=== PATIENT | female | born 1940 | race African-American/Black ===

== ENCOUNTER → 2016-05-31 | Day surgery (SDC) | payer OTHER ==
[~2016-05-31] MED LIST: CARBOCAINE PF 2% ONE; NS 250 ML ONE
--- NOTE | 2016-05-31 17:57 | Diag Imaging Result Document ---
PROCEDURE NAME: NEPHROSTOGRAM - 05/31/2016 RIGHT NEPHROSTOMY CATHETER PLACEMENT UNDER FLUOROSCOPY AND RIGHT NEPHROSTOGRAM: COMPARISON: 03/10/2016. FINDINGS: The patient's previous indwelling nephrostomy tube was dislodged this morning and it was not in place at the time of the procedure. Risks, benefits, and alternatives were discussed with the patient and informed consent was obtained. The patient was placed in a prone position and was prepped and draped in a sterile fashion. Local anesthesia was achieved with 1% lidocaine solution. Using fluoroscopy guidance, a Glidewire was inserted via the same tract as the recently dislodged nephrostomy tube and a pigtail catheter was placed over wire into the right renal collecting system. Injected contrast through the newly placed catheter showed expected filling of the right renal collecting system and proximal right ureter, which were dilated. The catheter was secured with suture and a dressing with a catheter lock. There was good urine return after placement. IMPRESSION: Successful placement of right nephrostomy tube under fluoroscopy as described.
== END | disposition home or self-care (01) ==
LOC: OPS 09:39
PROVIDERS: ATTEND Urology
DX: T83.022A Displacement of nephrostomy catheter, initial encounter (principal); C80.1 Malignant (primary) neoplasm, unspecified
CPT/HCPCS: 74425; J0670; J7050; Q9966

== ENCOUNTER 2018-10-20 12:13 | Inpatient (IN) ==
[2018-10-20 13:45] LABS: BASO# 0.01 X1000 (0.0-0.2); BASO% 0.1 % (0.0-0.8); EOS# 0.01 X1000 (0.0-0.7); EOS% 0.1 % (0.0-10.0); HEMATOCRIT 30.8 % (37.0-47.0); HEMOGLOBIN 9.8 g/dL (12.0-16.0); IMM GRAN# 0.02 X1000 (0.0-0.04); IMM GRAN% 0.2 % (0.0-0.5); LYMPH% 4.8 % (20.5-51.1); MCH 30.6 PG (27-31); MCHC 31.8 g/dL (33-37); MCV 96.3 FL (81-99); MONO# 0.62 X1000 (0.11-0.59); MONO% 7.5 % (1.7-9.3); MPV 12.2 FL (7.4-10.4); NEUT# 7.19 X1000 (1.4-6.5); NEUT% 87.3 % (42.2-75.2); PLT 139 X1000 (130-400); RDW 13.9 % (11.5-14.5); WBC 8.25 X1000 (4.8-10.8)
[2018-10-20 13:56] LABS: ALBUMIN 3.3 g/dL (3.5-5.0); CALCIUM 9.5 mg/dL (8.8-10.2); CREATININE 4.8 mg/dL (0.5-0.9); POTASSIUM 3.8 mmol/L (3.5-5.1); TOTAL BILIRUBIN 0.51 mg/dL (0.20-1.00); TOTAL PROTEIN 6.6 g/dL (6.3-8.3)
[2018-10-20] MEDS ORDERED: VANCOMYCIN 1 GM/NS 1 GM/250 ML IVPB IV SCH (15:15)
--- NOTE | 2018-10-20 16:14 | PROVIDER DOCUMENTATION ---
This chart was entered by Cielo Willoughby Scribe, acting as scribe for Haleigh Dailey MD. HPI-General Adult - General Chief Complaint: Abnormal Lab[s] Stated Complaint: LOWER ABD PAIN Time Seen by Provider: 10/20/18 12:41 Source: patient Allergies/Adverse Reactions: Patient Allergies Allergy/AdvReac Type Severity Reaction Status Date / Time promethazine HCl * AdvReac Intermediate DIZZINESS Verified 08/04/18 07:39 [From Phenergan] Home Medications: Home Medication List Medication Instructions Recorded Confirmed Last Taken Type Iron 18 mg PO DAILY 12/17/13 08/04/18 08/03/18 21:00 History Simvastatin [Zocor] 20 mg PO DAILY 12/17/13 08/04/18 08/03/18 21:00 History Sodium Bicarbonate 325 mg PO BID 12/17/13 08/04/18 08/03/18 21:00 History Amlodipine Besylate [Norvasc] 2.5 mg PO DAILY 03/10/16 08/04/18 08/03/18 21:00 History - History of Present Illness -Gen Adult Nature of Presenting Problems: 78 y/o female presents to ED with N/V and difficulty walking onset 2 days ago. Pt reports she dialyzed yesterday, had blood work done, and was called today and told to come to ED because her "blood test was positive." Pt states she has hx bladder cancer and has a urostomy. Pt reports she has dialysis /, but she missed it on Tuesday, so she dialyzed / this week. Pt is alert and oriented. Location of Pain/Injury: reports: none Pain Radiation: reports: no radiation Quality of Pain: reports: none Severity: reports: mild Onset/Duration: reports: 2 days ago Timing: reports: still present Context/Activities at Onset: reports: none Modifying Factors: improves with: nothing Associated Symptoms: reports: nausea, vomiting, trouble walking Similar Symptoms Previously?: No Recently seen or treated by another doctor?: Yes Review of Systems - Adult - REVIEW OF SYSTEMS - ADULT Constitutional: reports: other (difficulty walking). denies: chills, fever Eyes: reports: no symptoms reported Ears, Nose, Mouth & Throat: reports: no symptoms reported Cardiovascular: denies: chest pain, palpitations Respiratory: denies: cough, shortness of breath Gastrointestinal: reports: nausea, vomiting. denies: abdominal pain, diarrhea Genitourinary: reports: no symptoms reported Musculoskeletal: denies: back pain, joint pain Integumentary: reports: no symptoms reported Neurological: denies: dizziness/vertigo, seizure Psychiatric: reports: no symptoms reported Endocrine: reports: no symptoms reported Hematologic/Lymphatic: reports: no symptoms reported Allergic/Immunologic: reports: no symptoms reported All Other Systems: Reviewed and Negative Past History - Adult - PAST MEDICAL HISTORY-ADULT Review of Records: reports: Old Records Reviewed, Nursing Assessment Review, Medications Reviewed Major Childhood Illnesses: reports: denies history Cardiovascular: reports: HTN Respiratory: reports: denies history Gastrointestinal: reports: denies history Obstetrical/Gynecological: reports: denies history Genitourinary: reports: cancer (bladder), dialysis (T/), ESRD, kidney disease, other (nephrostomy tube right kidney) Musculoskeletal: reports: denies history Neurological: reports: denies history Endocrine/Immune: reports: Diabetes Other Conditions: reports: denies history - PRIOR SURGERIES/PROCEDURES Surgical/Procedure History: reports: hysterectomy, , indwelling device (av shunt), other (bladder) - PRIOR HOSPITALIZATIONS Prior Hospitalizations: reports: for other non-related - IMMUNIZATION STATUS Childhood Immunizations: See Nurse Assessment Flu Vaccine: See Nurse Assessment - FAMILY HISTORY Family History: reviewed, not pertinent - SOCIAL HISTORY Smoking: non-smoker Substance Use: none/never Alcohol Use Frequency: never Living Situation: family Physical Exam-General - PHYSICAL EXAM-ADULT Initial Vital Signs Reviewed: Yes - CONSTITUTIONAL General Appearance: appears well, alert, no apparent distress - EYES Eyes: PERRL/EOMI, pink conjunctivae - HEAD, EARS, NOSE, MOUTH & THROAT HENMT: normocephalic/atraumatic, moist mucous membranes, normal ENT inspection - NECK Neck: non-tender, full range of motion, other (increased venous pressure in the neck) - RESPIRATORY Respiratory: chest non-tender, lungs clear, normal breath sounds - CARDIOVASCULAR Cardiovascular: normal peripheral pulses, regular rate, rhythm - GASTROINTESTINAL (ABDOMEN) Abdominal Exam: normal bowel sounds, non tender, soft, other (urostomy in place in right lower abdomen) - MUSCULOSKELETAL Back Exam: normal inspection, no CVA tenderness, no vertebral tenderness, other (nephrostomy in place on the right) Extremity: normal range of motion, non-tender, normal gait, swelling (1 + pitting edema of bilateral lower extremities) - SKIN Integumentary: normal color, warm/dry, swelling (1 + pitting edema of bilateral lower extremities) - NEUROLOGIC Neurologic: grossly normal - PSYCHIATRIC Psych/Mental Status: normal mood/affect, normal thought content, normal thought process, oriented x 3 Progress - PLAN OF CARE/RESULTS Progress/Plan/Lab Results: Vital Signs - 8 hr 10/20/18 12:17 Temperature 98.2 F Pulse Rate 76 Respiratory Rate 18 Blood Pressure 104/53 O2 Sat by Pulse Oximetry 98 Orders Category Date Time Status Saline Loc NOW Care 10/20/18 12:50 Active CBC WITH DIFF [HEME] Stat Lab 10/20/18 12:50 Uncollected COMPREHENSIVE METABOLIC PANEL [CHEM] Stat Lab 10/20/18 12:50 Uncollected Laboratory Tests 10/20/18 10/20/18 13:30 13:30 WBC 8.25 RBC 3.20 L Hgb 9.8 L Hct 30.8 L MCV 96.3 MCH 30.6 MCHC 31.8 L RDW Std Deviation 13.9 Plt Count 139 MPV 12.2 H Immature Gran % (Auto) 0.2 Neut % (Auto) 87.3 H Lymph % (Auto) 4.8 L [place] % (Auto) 7.5 Eos % (Auto) 0.1 Baso % (Auto) 0.1 Immature Gran # (Auto) 0.02 Neut # (Auto) 7.19 H Lymph # (Auto) 0.40 L [place] # (Auto) 0.62 H Eos # (Auto) 0.01 Baso # (Auto) 0.01 Sodium 136 Potassium 3.8 Chloride 95 L Carbon Dioxide 25 Anion Gap 16 BUN 30 H Creatinine 4.8 H Estimated GFR/1.73 m2 11 BUN/Creatinine Ratio 6 Glucose 65 L Calculated Osmolality 276 Calcium 9.5 Total Bilirubin 0.51 AST 16 ALT 13 Alkaline Phosphatase 84 Total Protein 6.6 Albumin 3.3 L Globulin 3.3 Albumin/Globulin Ratio 1.0 Result Diagrams: 10/20/18 13:30 10/20/18 13:30 - CT/MRI 1 CT Study: Abdomen, Pelvis Impression: See EMR Report ([facility] - [address] , [address], [place] [id number] [address] Department of Imaging Patient: ALYSSA KILLIAN Date: 10/20/18#: [id number] : 1940DM Status: REG ERAcct#: [id number] Age/Sex: 78/FRoom/Bed: Loc: ED Ordering Physician: Haleigh Dailey MD Family Physician: Guy Erazo MD Reason for Procedure: abdominal pain Signed EXAM: CT ABDOMEN/PELVIS W/O CONTRAST HISTORY: abdominal pain TECHNIQUE: CT abdomen and pelvis without contrast COMPARISON: None. FINDINGS: There are scattered hepatic and splenic granuloma. No focal hepatic or splenic abnormality identified on this noncontrasted exam. There is a small hiatal hernia. Normal pancreas. The left kidney has been removed. There is a percutaneous the prostate catheter within the right kidney. The gallbladder is contracted. Apparent stones within it. Severe atherosclerosis. There is a fat filled periumbilical hernia. Small anterior fat filled hernia at the level of the left lobe of the liver. There is also right lower quadrant colostomy and hernia containing bowel loops. No obstruction. There are colonic diverticula. No pelvic mass. IMPRESSION: 1.Right percutaneous nephrostomy 2.Right lower quadrant ostomy with hernia containing bowel, but no obstruction 3.Contracted gallbladder with cholelithia sis 4.Fat filled abdominal hernias 5.Left nephrectomy 6.Severe atherosclerosis 7.Colonic diverticulosis 8.Apparent cystectomy This exam was performed using automated exposure control, adjustment of mA or kV according to patient size, and/or use of iterative reconstruction technique. Electronically signed by Erick Santoyo 10/20/2018 4:41 PM 10/20/18 1641 Interpreting Physician: Erick Santoyo MD Dictated Date/Time: 10/20/18 4304 cc: Haleigh Dailey MD; Guy Erazo MD) - CONSULTS/PCP/HOSPITALIST Notification #1 *Consult/PCP/Hospitalist*: DENTON from Dr. Dietrich office Time Discussed: 15:03 Reason/Comments: Positive blood culture Consult Disposition: Admit #2 Consult: DENTON King for hospitalist Time Discussed: 15:53 Reason/Comments: Bacteremia Consult Disposition: Admit Departure - Departure Date of Disposition Decision: 10/20/18 Time of Disposition Decision: 15:03 DIAGNOSIS: Bacteremia Disposition: ADMITTED INPATIENT 09 Certified Medical Emergency: Emergent Condition: Stable - Critical Care Note This patient required my direct & personal management of CC.: No Attestation - Physician/ DAYLIN Attestation Patient care was provided by Advanced Practice Provider:: No The physician spent face to face time with patient:: Yes Advanced Practice Provider documentation review:: Supervising physician onsite and consulted in the evaluation and care of this patient. The physician did have a face to face encounter with the patient. This chart was documented by the indicated scribe, (Cielo Willoughby Scribe) and accurately reflects the services I performed and decisions made by me, Haleigh Dailey MD, as attested by the provider's signature.
--- NOTE | 2018-10-20 16:43 | Diag Imaging Result Doc PS360 ---
EXAM: CT ABDOMEN/PELVIS W/O CONTRAST HISTORY: abdominal pain TECHNIQUE: CT abdomen and pelvis without contrast COMPARISON: None. FINDINGS: There are scattered hepatic and splenic granuloma. No focal hepatic or splenic abnormality identified on this noncontrasted exam. There is a small hiatal hernia. Normal pancreas. The left kidney has been removed. There is a percutaneous the prostate catheter within the right kidney. The gallbladder is contracted. Apparent stones within it. Severe atherosclerosis. There is a fat filled periumbilical hernia. Small anterior fat filled hernia at the level of the left lobe of the liver. There is also right lower quadrant colostomy and hernia containing bowel loops. No obstruction. There are colonic diverticula. No pelvic mass. IMPRESSION: 1.Right percutaneous nephrostomy 2.Right lower quadrant ostomy with hernia containing bowel, but no obstruction 3.Contracted gallbladder with cholelithiasis 4.Fat filled abdominal hernias 5.Left nephrectomy 6.Severe atherosclerosis 7.Colonic diverticulosis 8.Apparent cystectomy This exam was performed using automated exposure control, adjustment of mA or kV according to patient size, and/or use of iterative reconstruction technique. Electronically signed by Erick Santoyo 10/20/2018 4:41 PM
[2018-10-20 17:20] LABS: URINE SOURCE CATH
[2018-10-20 17:37] LABS: CLARITY TURBID (CLEAR); COLOR BROWN
[2018-10-20 17:38] LABS: BILIRUBIN URINE NEGATIVE (NEGATIVE); GLUCOSE URINE NEGATIVE (NEGATIVE); KETONE URINE 40 mg/dL (NEGATIVE)
[2018-10-20 17:39] LABS: BLOOD URINE LARGE (NEGATIVE); PROTEIN URINE NEGATIVE (NEGATIVE); UROBILINOGEN URINE 0.2 EU/dL (0.2-1.0)
[2018-10-20 17:40] LABS: LEUKOCYTES URINE LARGE (NEGATIVE); NITRITE URINE NEGATIVE (NEGATIVE)
[2018-10-20 17:41] LABS: URINE BACTERIA 4+ /HFP; URINE CAST WHITE CELL PRESENT /LPF; URINE CRYSTAL NONE SEEN /HPF; URINE EPITHELIAL CELLS <10 /HPF (<10); URINE RBC TNTC /HPF (<10); URINE YEAST NONE SEEN /HPF
[2018-10-20 17:42] LABS: URINE WBC TNTC /HPF (<10)
[2018-10-20] MEDS ORDERED: TAZIDIME 0.5 GM in NS 50 ML IV ONE (18:16)
[2018-10-20] MEDS ORDERED: TAZIDIME 1 GM in NS 50 ML IV ONE (18:38)
[2018-10-20] MEDS ORDERED: TAZIDIME 1 GM in NS 50 ML IV SCH (21:00)
--- NOTE | 2018-10-20 22:50 | HISTORY AND PHYSICAL ---
ADDENDUM: The patient is a bladder cancer patient, dialysis patient. She was admitted directly after blood cultures were found to be positive yesterday attained during dialysis. She has bladder cancer and a nonfunctional urostomy but she has a nephrostomy on the right side that provides urine output currently. Her blood cultures from yesterday were positive for gram- negative rods and most likely related to urinary tract infection I am suspicious. Her last nephrostomy tube exchange was in July so she is due for nephrostomy tube change soon but in any case, the patient on exam she is doing well. Her nephrostomy tube was not draining. It is now draining purulent material and now sanguinous material so the patient will be admitted for treatment. Nephrology is already aware. Dr. Yepez has been consulted. I am going to consult Dr. Mello as well because of the nephrostomy issues and we will continue to follow. cc: MD Dr. Kacey Rios
--- NOTE | 2018-10-20 22:50 | HISTORY AND PHYSICAL ---
CHIEF COMPLAINT: Abnormal labs. 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 She has a chronic right nephrostomy tube. She presents to the emergency room under the direction of Dr. Dietrich after having positive blood cultures x2 that are growing gram-negative rods. They were drawn on 10/19/2018 at dialysis. The patient is a hemodialysis patient having Tuesday, , Tuesday hemodialysis. Ms. Bray states that she started having some nausea, vomiting, and difficulty walking that started during the night Tuesday night into Tuesday. She reported this during dialysis prompting blood cultures being drawn. PAST MEDICAL HISTORY: 1. End-stage renal disease on Tuesday, , Tuesday hemodialysis. 2. 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 3. History of a nonfunctioning left kidney. 4. Reflux into the right ureter per loopogram. 5. Chronic anemia secondary to end-stage renal disease. 6. Folic acid and B12 deficiency. 7. Diabetes mellitus. 8. Gastroesophageal reflux disease. PAST SURGICAL HISTORY: Cholecystectomy, hysterectomy, bilateral oophorectomy, ileal conduit. SOCIAL HISTORY: Denies alcohol, tobacco, or illicit drug use. ALLERGIES: Phenergan which causes dizziness. HOME MEDICATIONS: A list will be obtained by the nursing staff and once verified we will review and restart as appropriate. REVIEW OF SYSTEMS: Discussed with patient with pertinent positives stated in the HPI. All other systems are negative. PHYSICAL EXAMINATION: GENERAL: This is an 78-year-old female who is lying on the stretcher in the emergency room in no distress. VITAL SIGNS: Blood pressure as 119/55 with a heart rate of 81, respirations are 16, temperature is 97.8 degrees oral with room air saturations 99 to 100. HEENT: Head is normocephalic, atraumatic. Mucous membranes are moist. NECK: Supple. Trachea midline. CARDIOVASCULAR: Regular rate and rhythm. S1 and S2 appreciated. Calves are nontender bilateral. She does have bilateral pitting edema with peripheral pulses palpable. PULMONARY: Breath sounds are clear with no increased work of breathing noted. Chest rises and falls symmetric with respiration. GASTROINTESTINAL: Abdomen is soft, nontender, nondistended with bowel sounds in all 4 quadrants. GENITOURINARY: Urostomy is intact. Right lower abdomen stoma is pink. NEUROLOGIC: She is alert and oriented x3. SKIN: Warm and dry. LABORATORY DATA: WBC is 8.2 with hemoglobin 9.8, hematocrit 30.8, platelets of 139,000. Sodium 136, potassium 3.8, BUN 30, creatinine 4.8 with a glucose of 65. Urinalysis of cath urine reveals large amount of blood with too numerous to count red blood and white blood cells, 4+ bacteria. MICROBIOLOGY: 1. Blood cultures from 10/19/2018 preliminary is gram-negative rods. 2. Blood cultures x2 today are pending. 3. Urine culture is pending. 4. CT of the abdomen and pelvis revealed right percutaneous nephrostomy, right lower quadrant ostomy with hernia containing bowel but no obstruction. Contracted gallbladder with cholelithiasis. Fat-filled abdominal hernias. Left nephrectomy, severe arthrosclerosis, colonic diverticulosis and apparent cystectomy. ASSESSMENT AND PLAN: 1. Bacteremia. Blood cultures were redrawn in the emergency room. She was given vancomycin and Fortaz as per Dr. Dietrich's instructions and further antibiotics will be culture driven and dosed per Dr. Dietrich. 2. Nausea and vomiting. We will give Zofran for nausea. She did state that over the last 24 hours she has had no vomiting and much less nausea. She has had a little appetite. We will continue with a renal diet. 3. Folic acid and B12 deficiency, aware. 4. Hypertension. 5. Diabetes mellitus. She will be placed on pattern blood glucose and sliding scale insulin. 6. Gastroesophageal reflux disease. We will continue her Nexium. 7. Plan discussed with Dr. Mayer. 8. Further treatments pending hospital course. Dictated by DENTON Barclay for Boris Mayer MD cc: DENTON Barclay MD [facility]
[2018-10-21] MEDS: PRILOSEC PO SCH (06:41)
[2018-10-21 06:55] LABS: BASO# 0.01 X1000 (0.0-0.2); BASO% 0.2 % (0.0-0.8); EOS# 0.08 X1000 (0.0-0.7); EOS% 1.2 % (0.0-10.0); HEMATOCRIT 28.3 % (37.0-47.0); HEMOGLOBIN 9.1 g/dL (12.0-16.0); IMM GRAN# 0.03 X1000 (0.0-0.04); IMM GRAN% 0.5 % (0.0-0.5); LYMPH# 0.51 X1000 (1.2-3.4); LYMPH% 7.7 % (20.5-51.1); MCH 30.7 PG (27-31); MCHC 32.2 g/dL (33-37); MCV 95.6 FL (81-99); MONO# 0.48 X1000 (0.11-0.59); MONO% 7.3 % (1.7-9.3); MPV 11.8 FL (7.4-10.4); NEUT# 5.48 X1000 (1.4-6.5); NEUT% 83.1 % (42.2-75.2); PLT 156 X1000 (130-400); RBC 2.96 XMIL (4.2-5.4); RDW 13.8 % (11.5-14.5); WBC 6.59 X1000 (4.8-10.8)
[2018-10-21 07:14] LABS: ALBUMIN 2.7 g/dL (3.5-5.0); PHOSPHORUS 4.6 mg/dL (2.7-4.5); POTASSIUM 3.4 mmol/L (3.5-5.1)
[2018-10-21 07:16] LABS: CREATININE 6.1 mg/dL (0.5-0.9)
[2018-10-21] MEDS ORDERED: NS 2,000 ML MISC PRN (08:41)
[2018-10-21] MEDS ORDERED: HEPARIN IV PRN (08:41)
--- NOTE | 2018-10-21 14:32 | PROGRESS NOTE ---
DATE: 10/21/2018 SUBJECTIVE: Patient has no major complaints. She is getting dialysis. Seems to be doing okay. No major issues overnight. OBJECTIVE: Vital signs: Blood pressure is 120/50, heart rate of 63, respiratory 15, temperature 98.5 degrees, 100% on room air. Cardiovascular: Regular rate and rhythm. Pulmonary: Bilateral breath sounds clear to auscultation. Gastrointestinal: Soft, nontender, nondistended. Bowel sounds were positive. LABORATORY DATA: White count is 6, hemoglobin and hematocrit 9 and 28, platelets 156,000. BUN and creatinine are 41 and 6.1. Micro shows negative blood cultures from the 2nd but positive blood cultures from the 1st, and these were positive for Klebsiella oxytoca, which is sensitive to cefazolin. The patient currently on vancomycin and ceftazidime. PROBLEM LIST: 1. Klebsiella bacteremia, likely related to urinary tract infection and sepsis related to that. I think we can stop the vancomycin because this is a gram-negative jose and likely a urinary source. She is on ceftazidime, which should be sufficient coverage but cefazolin may be sufficient coverage too. Dr. Yepez will evaluate tomorrow, so we will continue to follow. 2. Nausea and vomiting. We will give Zofran for nausea and follow. That is resolved. 3. Type 2 diabetes is stable. 4. Nephrostomy. Today, her urine output is good. There are no issues with that. Urology has been consulted because she had a malfunctioning nephrostomy and may be due for these to be changed, so we will continue to follow. cc: Boris Mayer MD
[2018-10-21] MEDS ORDERED: TAZIDIME 0.5 GM in NS 50 ML IV ONE (17:00)
[2018-10-21] MEDS ORDERED: VANCOMYCIN 500 MG/NS 500 MG/100 ML IVPB IV ONE (18:00)
[2018-10-21] MEDS ORDERED: VANCOMYCIN 500 MG/NS 500 MG/100 ML IVPB IV SCH (18:13)
[2018-10-21] MEDS ORDERED: TAZIDIME 0.5 GM in NS 50 ML IV SCH ×4 (18:16)
--- NOTE | 2018-10-21 18:23 | CONSULTATION ---
DATE OF CONSULTATION: 10/21/2018 CONSULTING SERVICE: Hospitalist. CONSULTATION FOR: "Malfunction in nephrostomy". 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 She underwent left nephroureterectomy with cystectomy with pelvic exoneration ileal conduit in 2007. She has had right nephrostomy tube for a number of years. They are typically changed approximately every 4 months. Her last exchange took place on 08/04/2018. The patient was admitted because of positive blood cultures, nausea and vomiting and weakness. She reports cloudy urine in her nephrostomy tube with thick material. She reports that the tube is draining well and she fill up an entire nephrostomy bag over 24 hour period. She denies pulling on the tube or tube being inadvertently repositioned. She currently reports feeling fairly well. PAST MEDICAL HISTORY: End-stage renal disease, urothelial carcinoma of the bladder, anemia, diabetes mellitus, GERD. PAST SURGICAL HISTORY: Cholecystectomy, left nephrectomy with cystectomy with pelvic exoneration and ileal conduit urinary diversion, multiple nephrostomy tube exchanges. ALLERGIES: Phenergan. HOME MEDICATIONS: Iron, simvastatin, sodium bicarbonate, Norvasc. SOCIAL HISTORY: She denies tobacco, alcohol or drug use. FAMILY HISTORY: Negative for malignancy. REVIEW OF SYSTEMS: Reviewed and 12 systems negative except for the HPI. PHYSICAL EXAMINATION: 98.5, P 63, BP 120/50.General: A pleasant female in no acute distress. HEENT: Normocephalic, atraumatic. Cardiovascular: Regular rhythm. Pulmonary: Bilateral breath sounds. Abdomen: Large ventral scar which is healed well. Abdomen: Nontender, nondistended. No peritoneal signs. No guarding. Ileal conduit in the right lower quadrant. Palpation with the finger at the level of the stoma does not show any evidence of stenosis. Back: No CVA tenderness, right nephrostomy tube is in place draining straw-colored urine at the time of examination. : Bladder is nontender to palpation. Dermatologic: No obvious skin rashes. Neurologic: Alert, orient, x3 . Psychiatric: Appropriate mood and affect. PERTINENT LABORATORY DATA: White cell count 7000, hematocrit 28, creatinine is 6.1, potassium is 3.4. Her urinalysis July 2018 showed 4+ bacteria, too numerous to count white cells, too numerous to count red cells. Her blood culture from 10/19/2018 is growing Klebsiella oxytoca, her urine culture from 10/20/2018 and blood cultures still pending. IMAGING: CT abdomen and pelvis without contrast on 10/20/2018 revealing right nephrostomy tube in decent place, there is right hydroureteronephrosis despite the tube presence with tapering of the ureter by my personal review. ASSESSMENT/PLAN: 78-year-old female with right solitary kidney and ileal conduit with her right kidney managed with nephrostomy tube. She is not due for exchange until sometime in November however she has had positive blood cultures. I have discussed with the patient that I do not see any evidence of malfunction in tube. We have discussed that given her positive blood cultures it is reasonable to exchange nephrostomy tube. Urology does not exchange nephrostomy tube. Per hospital system radiologists do that and ask us to put the orders on their behalf. Over the weekend there is no radiologist available to exchange nephrostomy tube. Because she is not clinically unstable this can wait until Tuesday when we will ask the radiology colleagues to exchange the tube. PLAN: 1. The nephrostomy tube currently is draining well and with adequate volume. It is in adequate position hence nothing needs to be done over the weekend. 2. On Tuesday we will ask the radiology physicians to exchange nephrostomy tube. cc: Stephen Martinez MD
--- NOTE | 2018-10-21 20:24 | NEPHROLOGY CONSULTATION ---
DATE: 10/21/2018 REASON FOR ADMISSION: Positive blood cultures, fever, nausea, vomiting. REASON FOR CONSULTATION: Assist with management, ESRD management. HISTORY OF PRESENT ILLNESS: This is an 78-year-old female with history of end- stage renal disease, on dialysis on Tuesday, , Tuesday. She dialyzed on Tuesday and this week. She was noted to have nausea, vomiting, and a fever. Blood cultures were drawn. On Tuesday, we had results back from her blood cultures. She was positive with gram-negative rods. She was directed to the emergency room, so that she could be admitted, have antibiotic treatment, and workup for her positive blood cultures. She did present to the ER. We initiated vancomycin and Fortaz. We ordered an Infectious Disease consult. The patient did have CT imaging as well as other imaging and workup, and repeat blood cultures. It is noted that the patient has a history of fairly recent bladder cancer with bladder removal and now has a urostomy tube to drainage. She was also noted to have too numerous to count bacteria with her urine specimen. When I see her today, she is undergoing hemodialysis. She has continued to have some nausea, but no vomiting, and she has been afebrile overnight since receiving antibiotics. 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 SURGICAL HISTORY: Cholecystectomy, hysterectomy, bilateral oophorectomy, and the ileal conduit. ALLERGIES: Promethazine. HOME MEDICATIONS: Please see chart. SOCIAL HISTORY: Negative. FAMILY HISTORY: Noncontributory. REVIEW OF SYSTEMS: Fever, nausea, vomiting. PHYSICAL EXAMINATION: Vital Signs: Temperature 98.5 degrees, pulse 65, respiratory rate 15, blood pressure 120/50. Intake 50 mL, output 750 mL. General: This is an elderly female, sitting up in bed. She is currently undergoing hemodialysis. She is awake and alert. She is in no acute distress. HEENT: Normocephalic, atraumatic. MARGY. Neck: Supple without JVD. Cardiovascular: Regular. Pulmonary: Clear bilaterally. Abdomen: Soft with positive bowel sounds. She has an ileal conduit noted. Extremities: No clubbing, cyanosis, edema. She has an AV fistula of left upper extremity, currently cannulated. Integumentary: Skin is warm and dry. Neurologic: Grossly nonfocal. LABORATORY DATA: WBC of 6.5, hemoglobin 9.1. Sodium 132, potassium 3.4, CO2 of 22, creatinine 6.1, albumin 2.7. Her urine was positive for bacteria. Her cultures are pending. IMAGING: As noted. ASSESSMENT AND PLAN: 1. Bacteremia. We will continue with the vancomycin and Fortaz. We requested assistance from Infectious Disease. It also appears that she has a Urology consult. We do not believe that her bacteremia is related to her dialysis access as she does not have any plastics in her access. 2. Electrolytes, acid-base balance. These are acceptable. 3. End-stage renal disease management. We will continue Tuesday, , Tuesday schedule. Dictated by DENTON Beth for Bebeto Dietrich MD cc: Bebeto Dietrich MD [facility]
[2018-10-22] MEDS: PRILOSEC PO SCH (06:35)
[2018-10-22 06:37] LABS: BASO# 0.03 X1000 (0.0-0.2); BASO% 0.4 % (0.0-0.8); EOS# 0.14 X1000 (0.0-0.7); HEMOGLOBIN 9.2 g/dL (12.0-16.0); IMM GRAN# 0.04 X1000 (0.0-0.04); IMM GRAN% 0.6 % (0.0-0.5); LYMPH# 0.72 X1000 (1.2-3.4); LYMPH% 10.1 % (20.5-51.1); MCH 30.9 PG (27-31); MCHC 31.7 g/dL (33-37); MCV 97.3 FL (81-99); MONO# 0.75 X1000 (0.11-0.59); MONO% 10.5 % (1.7-9.3); MPV 11.6 FL (7.4-10.4); NEUT# 5.45 X1000 (1.4-6.5); NEUT% 76.4 % (42.2-75.2); PLT 194 X1000 (130-400); RBC 2.98 XMIL (4.2-5.4); WBC 7.13 X1000 (4.8-10.8)
[2018-10-22] MEDS: ZOFRAN IV PRN (06:38)
[2018-10-22 07:02] LABS: ALBUMIN 2.9 g/dL (3.5-5.0); CALCIUM 9.1 mg/dL (8.8-10.2); CREATININE 4.4 mg/dL (0.5-0.9); POTASSIUM 3.1 mmol/L (3.5-5.1)
[2018-10-22] MEDS ORDERED: TAZIDIME 1 GM in NS 50 ML IV SCH ×2 (10:11→11:00)
[2018-10-22] MEDS ORDERED: TAZIDIME 0.5 GM in NS 50 ML IV ONE ×5 (10:12→11:00)
--- NOTE | 2018-10-22 11:46 | INFECTIOUS DISEASE CONSULT REP ---
DATE: 10/22/2018 CONCLUSION: The patient has a Klebsiella bacteremia. I think this most likely originated from her kidney. RECOMMENDATIONS: I agree with giving the patient ceftazidime after each dialysis. I have increased the dose from 0.5 g to 1 g after each dialysis. I would suggest treating the patient for 2 weeks with the ceftazidime being given after each dialysis, and the first day of treatment would be on 10/20/2018; therefore, this is day 2 of treatment with ceftazidime. DISCUSSION: The patient said that about 2 days ago, she started having nausea, vomiting, and ataxia. She did not complain of fever or diarrhea. The laboratory studies show that the patient has a blood culture positive for Klebsiella. It was first positive on 10/19/2018, and the patient's urine is growing 2 different gram-negative rods. The patient's blood cultures became sterile on 10/20/2018. PAST MEDICAL HISTORY/REVIEW OF SYSTEMS: Eyes and Ears: The patient says she can hear okay. She does wear glasses. Neck: No pain with movement of it. Respiratory: No cough or shortness of breath. Cardiac: No chest pain or palpitations. : No dysuria or flank pain. GI: See present illness. Neurologic: No seizures. No loss of motor or sensory function. 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 She has delivered all of her children by C- section. The patient had a bilateral oophorectomy and hysterectomy. PREVIOUS HOSPITALIZATIONS AND OPERATIONS: She has had C-sections, creation of a left arm AV fistula, a left nephrectomy, a bilateral oophorectomy, creation of an ileal conduit, a hysterectomy, and cholecystectomy. The patient had a radical cystectomy with formation of an ileal conduit. MEDICAL DISEASES: Positive for end-stage renal disease, transitional cell carcinoma of the bladder for which she underwent a radical cystectomy with an ileal conduit in 2007, history of a nonfunctioning left kidney, reflux of the right ureter, chronic anemia, folic acid and B12 deficiency, diabetes mellitus, gastroesophageal reflux disease, and hyperlipidemia. INFECTIOUS DISEASE HISTORY: Positive for urinary tract infection. FAMILY HISTORY: Positive for diabetes mellitus and hypertension. SOCIAL HISTORY: The patient is a . She does not smoke cigarettes, drink alcoholic beverages or abuse or use illicit drugs. She does not have any pets at home. ALLERGIES: Phenergan. HOME MEDICATIONS: Amlodipine, vitamin B12 injections, pantoprazole, simvastatin and sodium bicarbonate. PHYSICAL EXAMINATION: Vital Signs: Temperature is 98.9 degrees, pulse 66, respirations 15, blood pressure 110/45. The patient is 4 feet 11 inches tall, weighs 117 pounds. General: This is a somewhat ill-appearing, elderly female. She is in no acute distress. Head, eyes, ears, nose, and throat: She can hear my spoken words. She does wear glasses. She can see near objects. Neck: No meningismus. Extremities: The patient has a left arm AV fistula. The site is not draining or tender. Abdomen: Soft and nontender. An ostomy is present on the right side. Neurologic: The patient is alert. She can move her extremities. There is no tremor. Her sensation is intact to touch. Her memory as regarding her medical history was slightly decreased. Thank you for the consult. cc: Samuel Yepez MD
--- NOTE | 2018-10-22 15:04 | PROGRESS NOTE ---
DATE: 10/22/2018 SUBJECTIVE: The patient has no major complaints. She is sitting up in bed doing very well. Her nephrostomy is draining clear looking urine. OBJECTIVE DATA: Her heart rate is 73, blood pressure 114/52, temperature 99.1 degrees, respiratory rate 15.Cardiovascular: Regular rate and rhythm. Pulmonary: Bilateral breath sounds clear to auscultation. GI: Soft, nontender, nondistended. Bowel sounds are positive. LABORATORY DATA: White count 7, hemoglobin and hematocrit 9 and 29 which is stable, platelets 194,000. Potassium 3.4, creatinine 4.4. Micro is growing out 2 different Gram negative rods from her urine on the 2nd. Blood cultures so far are negative. PROBLEM LIST: 1. She has a Klebsiella bacteremia which is likely from her urine. I mean she had grossly purulent urine. I saw it in the bag. Once they relieved there was some degree of obstruction. Dr. Yepez is following. Continue ceftazidime at a 1 g after dialysis dose which is an increase and pending sensitivities and we should be able to manage that without too much difficulty since she is on dialysis and give her dose after dialysis. Clinically she looks well. 2. Nephrostomy adjustment. Dr. Martinez is recommending to change her nephrostomy tomorrow I believe, is not ordered that way but presumably I think that is what he wants us to do so we will order that for tomorrow and will see how she does. Presumably if she can be done tomorrow and her cultures are no growth after 72 hours and we have urine cultures is possible we could get her home tomorrow but will see how things look. cc: Boris Mayer MD
[2018-10-22] MEDS: SODIUM BICARBONATE PO SCH (20:55)
[2018-10-23] MEDS: PRILOSEC PO SCH (06:37)
[2018-10-23 08:07] LABS: BASO# 0.03 X1000 (0.0-0.2); BASO% 0.4 % (0.0-0.8); EOS% 2.6 % (0.0-10.0); HEMATOCRIT 30.4 % (37.0-47.0); HEMOGLOBIN 9.6 g/dL (12.0-16.0); IMM GRAN# 0.05 X1000 (0.0-0.04); IMM GRAN% 0.6 % (0.0-0.5); LYMPH# 1.29 X1000 (1.2-3.4); LYMPH% 16.5 % (20.5-51.1); MCH 31.1 PG (27-31); MCHC 31.6 g/dL (33-37); MCV 98.4 FL (81-99); MONO# 0.76 X1000 (0.11-0.59); MONO% 9.7 % (1.7-9.3); MPV 11.2 FL (7.4-10.4); NEUT# 5.51 X1000 (1.4-6.5); NEUT% 70.2 % (42.2-75.2); PLT 232 X1000 (130-400); RBC 3.09 XMIL (4.2-5.4); RDW 13.9 % (11.5-14.5); WBC 7.84 X1000 (4.8-10.8)
[2018-10-23 08:23] VITALS: BP 125/69
[2018-10-23 08:29] LABS: BANDS 6 % (0-1); EOS 2 % (1-10); LYMPHS 8 % (21-51); MONO 4 % (1-9); SEGS 74 % (42-75)
[2018-10-23 08:36] LABS: CALCIUM 9.9 mg/dL (8.8-10.2); CREATININE 6.1 mg/dL (0.5-0.9); PHOSPHORUS 4.4 mg/dL (2.7-4.5); POTASSIUM 3.8 mmol/L (3.5-5.1)
[2018-10-23] MEDS ORDERED: NORVASC PO SCH (09:00)
[2018-10-23] MEDS ORDERED: PROTONIX PO SCH (09:00)
[2018-10-23] MEDS ORDERED: PATIENT'S OWN MED PO SCH (09:00)
[2018-10-23] MEDS ORDERED: VITAMIN B-12 PO SCH (09:00)
[2018-10-23] MEDS ORDERED: NS 250 ML ONE (09:33)
[2018-10-23] MEDS: SODIUM BICARBONATE PO SCH (10:38)
--- NOTE | 2018-10-23 10:46 | Diag Imaging Result Doc PS360 ---
EXAM: NEPHROSTOMY TUBE EXCHANGE 10/23/2018 HISTORY: tube exchange TECHNIQUE: Fluoroscopy guided nephrostomy tube exchange. Two images, two mGy, 36 seconds fluoroscopy time. COMMENT: The risks and benefits of the procedure were discussed with the patient and she agreed to the procedure. Following sterile preparation of the skin, the previously placed nephrostomy tube was exchanged over a guidewire with a new 10.2-Albanian cope loop nephrostomy catheter. This was secured to the skin with a suture and the adhesive device, and in addition was tied to a suture and the skin. IMPRESSION: Successful nephrostomy tube exchange. Electronically signed by Ruel Correia 10/23/2018 10:43 AM
[2018-10-23] MEDS: ZOFRAN IV PRN (10:57)
--- NOTE | 2018-10-23 15:15 | NEPHROLOGY PROGRESS NOTE ---
DATE: 10/23/2018 SUBJECTIVE: Ms. Bray is resting quietly in bed. States that she is feeling fairly well today. OBJECTIVE: Vital Signs: Her most recent vital signs, her last temperature 98.6 degrees, blood pressure 99/48, heart rate 66, respirations 17. She is on room air. Last recorded saturation is 99%. She has had 780 in. She has had 600 out to void. Laboratory Data: Sodium is 138, potassium 3.8, chloride 95, CO2 29, BUN 32, creatinine 6.1, glucose is 82. The patient's anion gap is 14. Her calcium is 9.9, phosphorus 4.4, albumin 3. White count 7.84, hemoglobin 9.6, hematocrit 34.4, with a platelet count of 232,000. Her urine final is Proteus mirabilis, Klebsiella oxytoca. General: This is an 78-year-old female. She is resting quietly in bed. She appears chronically ill, though no acute distress. Skin: Warm and dry. HEENT: Normocephalic, atraumatic. Conjunctiva is pale pink. She has MARGY. Mucous membranes are dry. Neck: Supple. Trachea midline. No evidence of JVD. Cardiovascular: She has regular rate and rhythm. She is without murmur or gallop. Lungs: Clear to auscultation bilaterally. Equal excursion on room air. Abdomen: Soft, nontender. Positive bowel sounds. She has a nephrostomy tube to the right upper quadrant. Genitourinary: Minimal void with dialysis assist. Extremities: Have no edema. No clubbing or cyanosis. Fistula to the left forearm dry and intact. Good thrill. Neurological: Alert and oriented x3. ASSESSMENT AND PLAN: 1. Chronic kidney disease stage 5D. The patient is due for her routine dialysis treatment in the morning. No indications for intervention today. 2. Electrolytes and acid-base balance. These are acceptable. 3. Anemia. This is close to target. 4. Bacteremia. Patient continues on vancomycin and Fortaz. Infectious Disease is following along with Urology. I would like to thank you for allowing us to follow with this patient. Dictated by DENTON Tafoya for Bebeto Dietrich MD Face to face encounter, data reviewed, discussed with Jammie Trevizo on 10/23/18. I agree with the above assessment and plan of care. sandra cc: DENTON Tafoya MD MTDD
[2018-10-23] MEDS ORDERED: ZOCOR PO SCH (21:00)
--- NOTE | 2018-10-24 09:47 | DISCHARGE SUMMARY ---
ADMISSION DATE: 10/20/2018 DISCHARGE DATE: 10/23/2018 DISCHARGE DIAGNOSES: 1. Klebsiella oxytoca bacteremia. 2. Anemia. 3. Nephrostomy tube with positive Proteus and Klebsiella urinary tract infection. DISCHARGE DIAGNOSES: 1. Bacteremia. 2. End-stage renal. 3. History of bladder cancer. PROCEDURES: She had a nephrostomy tube exchange. CONSULTATIONS: Nephrology, Dr. Dietrich. Infectious Disease, Dr. Yepez. Dr. Martinez Urology. HOSPITAL COURSE: Briefly this is an 78-year-old female presenting with positive blood cultures and she was directly admitted. These were done on the and she was admitted the following day. She had been started empirically on antibiotics. She did have some nausea, vomiting, some difficulty ambulating. She has a history of transitional cell cancer which she had a cystectomy and ileal conduit and now she has a chronic nephrostomy tube, that since 2007. She is on dialysis. Her positive blood cultures grew out Klebsiella oxytoca which was only resistant to ampicillin. She was started on vancomycin and ceftazidime per initial instruction. Dr. Martinez was consulted. He recommended changing out nephrostomy tube prior to discharge. Dr. Dietrich recommended antibiotics and the bacteremia was not felt to be related to her dialysis access, but additionally, she grew out Klebsiella from her nephrostomy tube. It was somewhat occluded when it was flushed. It started having grossly purulent fluid and it started draining without difficulty. Her urine, based on that, showed significant pyuria and again grew out Klebsiella oxytoca and Proteus mirabilis, both of which were sensitive to cefazolin, so she was maintained on ceftazidime. Dr. Yepez evaluated her and started her on ceftazidime as an outpatient which it was sensitive to. She did fine. Repeat blood cultures were done on the and are still no growth to date, that is going on 72 hours. We felt stable for patient for discharge. She was also discharged on a ceftazidime course after dialysis for the next [address] Yepez' recommendation. Nephrostomy tube was changed prior to discharge on the per Dr. Correia. DISCHARGE MEDICATIONS: Iron 18 daily, Norvasc 2.5 daily, pantoprazole 40 daily, sodium bicarbonate 325 b.i.d., vitamin B12 at 1000, Zocor 20 daily, ceftazidime will be 1 g after dialysis. So, we will see how she does. Repeat blood cultures prior to discharge. TIME SPENT: [address] Yepez is going to set up outpatient antibiotics with Dr. Dietrich. cc: MD Bebeto Gupta MD Malcolm R. Hendricks, MD Dr. Harris
== END 2018-10-23 17:09 | disposition home or self-care (01) | DRG 698 ==
LOC: ED 12:13 → 1N 17:43
PROVIDERS: ATTEND Internal Medicine

== ENCOUNTER 2019-04-30 09:28 | Inpatient (IN) ==
[2019-04-30 10:35] LABS: BASO# 0.02 X1000 (0.0-0.2); BASO% 0.3 % (0.0-0.8); EOS# 0.11 X1000 (0.0-0.7); EOS% 1.8 % (0.0-10.0); HEMATOCRIT 32.6 % (37.0-47.0); HEMOGLOBIN 9.8 g/dL (12.0-16.0); LYMPH# 1.04 X1000 (1.2-3.4); LYMPH% 17.2 % (20.5-51.1); MCH 30.5 PG (27-31); MCHC 30.1 g/dL (33-37); MCV 101.6 FL (81-99); MONO# 0.37 X1000 (0.11-0.59); MONO% 6.1 % (1.7-9.3); MPV 10.4 FL (7.4-10.4); NEUT# 4.52 X1000 (1.4-6.5); NEUT% 74.6 % (42.2-75.2); PLT 303 X1000 (130-400); RBC 3.21 XMIL (4.2-5.4); RDW 16.1 % (11.5-14.5); WBC 6.06 X1000 (4.8-10.8)
[2019-04-30 10:50] LABS: INR 0.98
[2019-04-30 10:51] LABS: PTT 34.5 Seconds (22.3-41.8)
[2019-04-30 11:00] LABS: ALB/GLOB RATIO 1.4; CALCIUM 9.7 mg/dL (8.8-10.2); POTASSIUM 4.2 mmol/L (3.5-5.1); TOTAL BILIRUBIN 0.34 mg/dL (0.20-1.00); TOTAL PROTEIN 6.9 g/dL (6.3-8.3)
[2019-04-30 11:05] LABS: CREATININE 6.5 mg/dL (0.5-0.9)
[2019-04-30 11:12] LABS: BILIRUBIN URINE NEGATIVE (NEGATIVE); BLOOD URINE SMALL (NEGATIVE); COLOR YELLOW; GLUCOSE URINE NEGATIVE (NEGATIVE); KETONE URINE NEGATIVE (NEGATIVE); LEUKOCYTES URINE LARGE (NEGATIVE); NITRITE URINE POSITIVE (NEGATIVE); PROTEIN URINE 100 mg/dL (NEGATIVE); SP GRAVITY URINE 1.008; TURBIDITY URINE HAZY (CLEAR); URINE SOURCE CATH; UROBILINOGEN URINE NORMAL (NORMAL)
--- NOTE | 2019-04-30 11:32 | Diag Imaging Result Doc PS360 ---
EXAM: ABDOMEN FLAT/UPRIGHT INDICATION: abdo pain TECHNIQUE: 2 views COMPARISON: 02/05/2016 FINDINGS: A right nephrostomy tube is in place. There are stable metallic clips in the pelvis and mid abdomen. There are unremarkable bowel gas and stool patterns. There is no obstructive bowel pattern. There is no evidence of large volume free abdominal gas. There is no evidence of organomegaly. IMPRESSION: No evidence of acute pathology by plain radiograph. Electronically signed by Arthur Hull 04/30/2019 11:29 AM
[2019-04-30 11:34] LABS: UR EPITHELIAL CELLS <10 /HPF (<10); URINE BACTERIA 4+ /HPF; URINE RBC <10 /HPF (<10); URINE WBC TNTC /HPF (<10)
[2019-04-30 12:00] LABS: URINE CASTS NONE SEEN; URINE YEAST NONE SEEN
[2019-04-30] MEDS ORDERED: ROCEPHIN 1 GM in NS 50 ML IV ONE (12:06)
--- NOTE | 2019-04-30 12:08 | PROVIDER DOCUMENTATION ---
This chart was entered by Bella Mccarthy Scribe, acting as scribe for Edil Manley MD. HPI-Abdominal Pain/GI Problem - General Chief Complaint: GI Bleed Stated Complaint: RECTAL BLEEDING Time Seen by Provider: 04/30/19 09:47 Source: patient Allergies/Adverse Reactions: Patient Allergies Allergy/AdvReac Type Severity Reaction Status Date / Time promethazine HCl * AdvReac Intermediate DIZZINESS Verified 04/30/19 10:24 [From Phenergan] Home Medications: Home Medication List Medication Instructions Recorded Confirmed Last Taken Type Iron 18 mg PO DAILY 12/17/13 04/30/19 04/29/19 07:00 History Amlodipine Besylate [Norvasc] 2.5 mg PO DAILY 03/10/16 04/30/19 04/29/19 07:00 History Pantoprazole Sodium 40 mg PO DAILY 10/21/18 04/30/19 04/29/19 07:00 History Ondansetron [Ondansetron Odt] 4 mg PO Q6-8H PRN PRN #10 02/27/19 04/30/19 2 Days Ago Rx tab.rapdis ~04/09/19 Atorvastatin Calcium [Lipitor] 10 mg PO DAILY 04/11/19 04/30/19 04/29/19 07:00 History - History of Present Illness-ABD Nature of Presenting Problems: 78yof presents to ED cc abdominal pain, vomiting, nausea, rectal pain and constipation for last 4 days. Pt has clostomy bag and nephrostomy tubes on right side. Pt has hx of bladder cancer, HTN, DM and dementia. Pt is nontoxic and in no acute distress upon exam. Pt has dialysis T//. Abdominal Pain Onset Location: reports: generalized abdomen Quality of Pain: reports: cramping Severity in ED: reports: mild Onset/Duration: reports: 4 days ago Timing: reports: still present Activities at Onset: reports: light activity Modifying Factors: improves with: nothing Associated Symptoms: reports: constipation, nausea, vomiting Last BM: 4 days ago Rectal Bleeding: reports: blood mixed with stool Emesis Description: reports: clear Similar Symptoms Previously?: Yes Recently seen or treated by another doctor?: Yes (seen in ED 02/27/19) Review of Systems - Adult - REVIEW OF SYSTEMS - ADULT Constitutional: reports: see HPI. denies: chills, fever, fatique Eyes: reports: no symptoms reported Ears, Nose, Mouth & Throat: reports: no symptoms reported Cardiovascular: reports: no symptoms reported Respiratory: reports: no symptoms reported Gastrointestinal: reports: see HPI, abdominal pain, constipation, nausea, rectal bleeding, vomiting. denies: diarrhea Genitourinary: reports: see HPI. denies: dysuria, flank pain Musculoskeletal: reports: no symptoms reported Integumentary: reports: no symptoms reported Neurological: reports: no symptoms reported Psychiatric: reports: no symptoms reported Endocrine: reports: no symptoms reported Hematologic/Lymphatic: reports: no symptoms reported Allergic/Immunologic: reports: no symptoms reported All Other Systems: Reviewed and Negative Past History - Adult - PAST MEDICAL HISTORY-ADULT Review of Records: reports: Old Records Reviewed, Nursing Assessment Review, Medications Reviewed, Social history reviewed & non-contributory. Major Childhood Illnesses: reports: denies history Cardiovascular: reports: HTN Respiratory: reports: denies history Gastrointestinal: reports: denies history Obstetrical/Gynecological: reports: denies history Genitourinary: reports: cancer (bladder), dialysis (T/Th), ESRD, kidney disease, other (nephrostomy tube right kidney) Musculoskeletal: reports: denies history Neurological: reports: denies history Endocrine/Immune: reports: Diabetes Other Conditions: reports: denies history - PRIOR SURGERIES/PROCEDURES Surgical/Procedure History: reports: hysterectomy, , indwelling device (av shunt), other (bladder) - PRIOR HOSPITALIZATIONS Prior Hospitalizations: reports: for other non-related - IMMUNIZATION STATUS Childhood Immunizations: See Nurse Assessment Flu Vaccine: See Nurse Assessment - FAMILY HISTORY Family History: reviewed, not pertinent Physical Exam-General - PHYSICAL EXAM-ADULT Initial Vital Signs Reviewed: Yes - CONSTITUTIONAL General Appearance: appears well, alert, no apparent distress. negative: a nxious, combative - EYES Eyes: PERRL/EOMI, pink conjunctivae. negative: photophobia - HEAD, EARS, NOSE, MOUTH & THROAT HENMT: normocephalic/atraumatic, moist mucous membranes. negative: angioedema - NECK Neck: supple, normal inspection - RESPIRATORY Respiratory: chest non-tender, lungs clear, normal breath sounds. negative: rhonchi, stridor - CARDIOVASCULAR Cardiovascular: normal peripheral pulses, regular rate, rhythm. negative: bradycardia, tachycardia - GASTROINTESTINAL (ABDOMEN) Abdominal Exam: normal bowel sounds, soft, no organomegaly, no pulsatile mass, tenderness, other (colostomy bag, looks well) - GENITOURINARY Rectal Exam: normal exam, normal rectal tone. negative: black stool, blood streaked stool - MUSCULOSKELETAL Back Exam: normal inspection, no CVA tenderness, no vertebral tenderness, other (nephrostomy tubes on right side) Extremity: normal inspection, normal capillary refill. negative: deformity - SKIN Integumentary: normal color. negative: diaphoresis, jaundice, rash - PSYCHIATRIC Psych/Mental Status: normal mood/affect, oriented x 3. negative: anxious, disheveled Progress - PLAN OF CARE/RESULTS Progress/Plan/Lab Results: Vital Signs - 8 hr 04/30/19 09:33 Temperature 98.8 F Pulse Rate 66 Respiratory Rate 19 Blood Pressure 122/70 O2 Sat by Pulse Oximetry 100 Orders Category Date Time Status CBC WITH ELECTRONIC DIFF [HEME] Stat Lab 04/30/19 10:15 Uncollected COMPREHENSIVE METABOLIC PANEL [CHEM] Stat Lab 04/30/19 10:15 Uncollected OCCULT BLOOD SCREENING [STOOL] Stat Lab 04/30/19 10:15 Uncollected PROTIME WITH INR [COAG] Stat Lab 04/30/19 10:15 Uncollected PTT [COAG] Stat Lab 04/30/19 10:15 Uncollected UA [URINALYSIS W/POSS RFLX CULT] [URINALYSIS] Stat Lab 04/30/19 10:16 Uncollected Result Diagrams: 04/30/19 09:55 04/30/19 09:55 - XRAY 1 XRAY Study: Abdomen Impression: See EMR Report (IMPRESSION: No evidence of acute pathology by plain radiograph. Electronically signed by Arthur Hull 04/30/2019 11:29 AM) - CONSULTS/PCP/HOSPITALIST Notification #1 *Consult/PCP/Hospitalist*: Arin/[employer] Time Discussed: 12:05 Consult Disposition: Admit (Dr. Quinones) Departure - Departure Date of Disposition Decision: 04/30/19 Time of Disposition Decision: 12:05 DIAGNOSIS: GI bleed, UTI (urinary tract infection) Disposition: ADMITTED INPATIENT 09 Certified Medical Emergency: Emergent Condition: Fair Additional Instructions: ED Follow Up Instructions: You have been treated by a care provider in the Emergency Department. These instructions are being provided to you so you can have an understanding of how to care for yourself upon discharge. Upon discharge from the Emergency Department, you are responsible for making arrangements for follow-up care by a physician of your choice. Take all prescribed medications as directed. Return to the Emergency Department immediately for any new or worsening symptoms. You may call the Physician Referral phone number at [phone] to obtain a list of Physicians who are taking new patients. Referrals and Follow-Ups: Guy Erazo MD [Primary Care Provider] - - Critical Care Note This patient required my direct & personal management of CC.: No Attestation - Physician/ [place] Attestation Patient care was provided by Advanced Practice Provider:: No The physician spent face to face time with patient:: Yes Advanced Practice Provider documentation review:: Supervising physician onsite and consulted in the evaluation and care of this patient. The physician did have a face to face encounter with the patient. This chart was documented by the indicated scribe, (Bella Mccarthy, Nasrin) and accurately reflects the services I performed and decisions made by me, Edil Manley MD, as attested by the provider's signature.
[2019-04-30] MEDS ORDERED: TYLENOL PO PRN (13:05)
[2019-04-30] MEDS ORDERED: ZOFRAN IV PRN (13:05)
--- NOTE | 2019-04-30 14:41 | HISTORY AND PHYSICAL ---
PRIMARY CARE PHYSICIAN: Dr. Guy Erazo. CHIEF COMPLAINT: Of bright red rectal bleeding with constipation for the past 4 days with some nausea, vomiting that has progressively worsened. HISTORY OF PRESENTING ILLNESS: This is an 78-year-old female who presents to [facility] with complaints of bright red rectal bleeding with some abdominal pain, nausea, vomiting and constipation over the past 4 days that progressively worsened. States that she has a history of end-stage renal disease and gets dialysis on Tuesday, , Tuesday, also has bladder cancer with a right nephrostomy tube and a ileal conduit. Her workup in the emergency room showed a Hemoccult stool for blood was positive. Her hemoglobin and hematocrit was stable at 9.8 and 32.6. Her BUN was 37 with a creatinine of 6.5. Urinalysis did show positive nitrites, large leukocytes and 4+ bacteria so she will be admitted for further evaluation and treatment. PAST MEDICAL HISTORY: End-stage renal disease with dialysis on Tuesday, , Tuesday, bladder cancer, hypertension, diabetes and dementia. PAST SURGICAL HISTORY: , a right nephrostomy tube, bilateral oophorectomy, the ileal conduit. SOCIAL HISTORY: She denies any alcohol, tobacco or illicit drugs. ALLERGIES: Phenergan. HOME MEDICATIONS: We will hold her ondansetron ODT 4 mg p.o. q.6 to 8 hours p.r.n., Norvasc 2.5 mg p.o. daily, Lipitor 10 mg p.o. daily, iron 18 mg p.o. daily, pantoprazole 40 mg p.o. daily. LABORATORY DATA: Showed a white blood cell count of 6.09, hemoglobin 9.8, hematocrit 32.6, platelets 303,000, PT and INR of 13 and 0.98. Sodium 142, potassium 4.2, chloride 100, CO2 25, BUN of 37, creatinine 6.5, glucose of 73. Urinalysis showed positive nitrites, large leukocytes, 4+ bacteria. Stool for occult blood was positive. Abdomen x-ray showed no evidence of acute pathology by plain radiograph. REVIEW OF SYSTEMS: She denied any fever, chills, blurred vision. She was positive for some dizziness, fatigue, cough, shortness of breath. She denied any abdominal pain but was positive for constipation and rectal bleeding along with some nausea but no vomiting and denied any burning or hurting with urination. PHYSICAL EXAMINATION: On arrival showed a temperature of 98.8 degrees, pulse 66, respirations 19, blood pressure 127/70, saturating 100% on room air. GENERAL: This is an 78-year-old female who is lying in the bed and answers questions appropriately. HEENT: Normocephalic, atraumatic. Normal ENT inspection. Oropharynx and nares are clear. Pupils are equal, round, reactive to light, accommodation. Extraocular movements are intact. NECK: Normal inspection, normal range of motion. LUNGS: Clear to auscultation bilaterally with equal lung expansion and chest wall movement. HEART: Regular rate and rhythm. No murmurs, rubs, or gallops. ABDOMEN: Soft, nontender, nondistended. Bowel sounds are present x4 quadrants. RECTAL: Positive Hemoccult in the ED. MUSCULOSKELETAL: She had 5/5 strength x4 extremities. NEUROLOGICAL: Cranial nerves 2-12 appear grossly intact. ASSESSMENT: 1. Gastrointestinal bleed. 2. Constipation. 3. Urinary tract infection. 4. End-stage renal disease with dialysis on Tuesday, , Tuesday. PLAN: She will be admitted to the medical unit, placed on telemetry, diabetic diet. Will consult Nephrology. Will do serial hemoglobin and hematocrit q.6 x3. Will continue her home medications, place on Rocephin 1 gram IV q.24, urine culture is pending. We are going to hold off right now on a GI consult as this may certainly be an issue with hemorrhoids and her constipation. She has a stable hemoglobin and hematocrit at this time so will monitor those hemoglobin and hematocrits as previously stated. Further orders after seen by attending. Dictated by DENTON Way for Emanuel Quinones MD cc: Guy Erazo MD Patient with small volume hematochezia with straining and chronic constipation. Hgb approximately stable from previous. suspect internal hemorrhoidal bleed(no external hemorrhoids identified) but will monitor for significant drop in H/H. if blood counts remain stable then will likely go home tomorrow to follow up with her pcp to arrange outpatient colonoscopy which is sounds like she is about due for anyway. [facility]PITALSiena
[2019-04-30 14:54] LABS: HEMATOCRIT 30.8 % (37.0-47.0); HEMOGLOBIN 9.3 g/dL (12.0-16.0)
[2019-04-30] MEDS ORDERED: MILK OF MAGNESIA PO ONE (18:29)
[2019-04-30 20:25] LABS: HEMATOCRIT 31.5 % (37.0-47.0); HEMOGLOBIN 9.7 g/dL (12.0-16.0)
[2019-04-30] MEDS: MIRALAX PO SCH (21:48)
[2019-05-01 02:00] LABS: HEMATOCRIT 31.7 % (37.0-47.0); HEMOGLOBIN 9.5 g/dL (12.0-16.0)
[2019-05-01 05:21] LABS: BASO# 0.03 X1000 (0.0-0.2); BASO% 0.5 % (0.0-0.8); EOS# 0.22 X1000 (0.0-0.7); EOS% 3.5 % (0.0-10.0); HEMATOCRIT 34.6 % (37.0-47.0); HEMOGLOBIN 10.5 g/dL (12.0-16.0); LYMPH# 1.46 X1000 (1.2-3.4); MCH 31.3 PG (27-31); MCHC 30.3 g/dL (33-37); MONO# 0.55 X1000 (0.11-0.59); MONO% 8.7 % (1.7-9.3); MPV 10.3 FL (7.4-10.4); NEUT# 4.09 X1000 (1.4-6.5); NEUT% 64.3 % (42.2-75.2); PLT 289 X1000 (130-400); RBC 3.36 XMIL (4.2-5.4); RDW 16.7 % (11.5-14.5); WBC 6.35 X1000 (4.8-10.8)
[2019-05-01 05:42] LABS: CALCIUM 9.5 mg/dL (8.8-10.2); POTASSIUM 4.1 mmol/L (3.5-5.1)
[2019-05-01 05:45] LABS: CREATININE 6.9 mg/dL (0.5-0.9)
[2019-05-01] MEDS ORDERED: HEPARIN IV PRN (06:33)
[2019-05-01] MEDS ORDERED: NS 2,000 ML MISC PRN (06:33)
[2019-05-01] MEDS ORDERED: TIGHT: 0.2 ML/HR FOR DIALYSIS MISC PRN (06:33)
[2019-05-01] MEDS ORDERED: DULCOLAX PR ONE (08:00)
[2019-05-01 08:25] VITALS: BP 115/61
[2019-05-01] MEDS: MIRALAX PO SCH (08:26)
[2019-05-01] MEDS ORDERED: NORVASC PO SCH (09:00)
[2019-05-01] MEDS ORDERED: FERROUS SULFATE PO SCH (09:00)
[2019-05-01] MEDS ORDERED: PROTONIX PO SCH (09:00)
[2019-05-01] MEDS ORDERED: LIPITOR PO SCH (09:00)
[2019-05-01] MEDS ORDERED: ROCEPHIN 1 GM in NS 50 ML IV SCH (12:00)
--- NOTE | 2019-05-01 15:12 | NEPHROLOGY CONSULTATION ---
DATE: 05/01/2019 REASON FOR ADMISSION: Bright red blood per rectum. REASON FOR CONSULTATION: Evaluate, treat, ESRD. CONSULTING PHYSICIAN: DENTON Way HISTORY OF PRESENT ILLNESS: This is an 78-year-old female, well known to our service for end- stage renal disease on hemodialysis on Tuesday, , Tuesday. Her last dialysis treatment was this past Tuesday. Patient came into the hospital on the day of admission secondary to positive Hemoccult along with bright red blood per rectum. The patient has been having some constipation with nausea and vomiting that have progressively worsened. In the emergency room. She was found to have a hemoglobin of 9.8, creatinine was 6.5 she did have a positive UTI. She was admitted for further workup and treatment. We have been asked to see her. When I see her this morning, she is awake and alert. She does not have any nausea this morning. She denies any further bleeding. PAST MEDICAL HISTORY: 1. End-stage renal disease, Tuesday, , and Tuesday. 2. History of bladder cancer with a right nephrostomy tube in the ileal conduit. 3. Hypertension. 4. Diabetes. 5. Dementia. 6. Anemia. 7. Gastroesophageal reflux disease. SURGICAL HISTORY: 1. . 2. Right nephrostomy tube. 3. Bilateral oophorectomy. 4. Ileal conduit. ALLERGIES: Promethazine. HOME MEDICATIONS: Iron, amlodipine, pantoprazole, ondansetron. FAMILY HISTORY: Noncontributory. SOCIAL HISTORY: No ETOH, tobacco, or illicit drug use. REVIEW OF SYSTEMS: Pertinent positives noted in the HPI. Essentially negative this morning. PHYSICAL EXAMINATION: Vital Signs: Temperature 97.3 degrees, pulse 55, respiratory rate 17, blood pressure 120/52. Intake 480 mL. Output 300 mL. General: This is an elderly female, resting in bed. Awake and alert. She is in no acute distress. HEENT: Normocephalic, atraumatic. Her conjunctivae are pale. Oral mucosa is moist. Neck: Supple. Without JVD. Cardiovascular: Regular, no murmur or gallop. Pulmonary: She is clear bilaterally. She is on room air. Abdomen: Soft, with positive bowel sounds. Denies tenderness. Genitourinary: Minimal void with hemodialysis assist. Extremities: No clubbing, cyanosis. He is moving all extremities. No pretibial edema. Integumentary: Skin is warm and dry. Neurologic: Was nonfocal. LAB DATA: WBC of 6.3, hemoglobin 10.5, sodium 140, potassium 4.1, CO2 23, creatinine 6.9. She had large leukocytes, too numerous to count WBCs. 4+ bacteria on her urinalysis. ASSESSMENT AND PLAN: 1. End-stage renal disease, Tuesday, . Tuesday. Today is her routine dialysis day. We will dialyze on a 2 K bath, UF to her dry weight 4 hour treatment. 2. Electrolytes, acid-base balance anemia. These are stable. See above for plan. 3. Urinary tract infection. The patient is on ceftriaxone appropriate dosing. No changes are needed. 4. Hypertension controlled. 5. Fluid volume she is not overloaded. We will plan to UF to dry weight today. Dictated by DENTON Beth for Bebeto Dietrich MD Face to face encounter during dialysis, data reviewed, discussed with Ced Mckeon on 05/01/19. I agree with the above assessment and plan of care. cc: Bebeto Dietrich MD [facility]
[2019-05-01 15:20] LABS: HEMATOCRIT 39.8 % (37.0-47.0); HEMOGLOBIN 12.2 g/dL (12.0-16.0)
[2019-05-01] MEDS ORDERED: LEVAQUIN PO ONE (18:00)
--- NOTE | 2019-05-01 21:16 | DISCHARGE SUMMARY ---
PRIMARY CARE PHYSICIAN: Dr. Guy Erazo. ADMISSION DIAGNOSES: 1. Gastrointestinal bleed. 2. Constipation. 3. Urinary tract infection. 4. End-stage renal disease with dialysis on Tuesday, , Tuesday. DISCHARGE DIAGNOSES: 1. Gastrointestinal bleed with stable hemoglobin and hematocrit. 2. Constipation, resolved. 3. Urinary tract infection. Urine culture pending. 4. End-stage renal disease with dialysis Tuesday, , Tuesday. SUMMARY OF FINDINGS: This is an 78-year-old female who presented with complaints of bright red rectal bleeding with some abdominal pain, nausea, vomiting and constipation over the past 4 days that progressively worsened. She had improvements in her hemoglobin and hematocrit up today to 12.2 and 39.8. She was noted to have significant constipation, was given Dulcolax 10 mg per rectum x1, milk of magnesia 30 mL p.o. x1. She had good stool and is currently in dialysis, but felt when she completes her dialysis that she will be stable for discharge. DISCHARGE MEDICATIONS: Norvasc 2.5 p.o. daily, atorvastatin 10 mg p.o. daily, iron 18 mg p.o. daily, pantoprazole 40 mg p.o. daily, MiraLAX 17 g p.o. daily, ondansetron ODT 4 mg p.o. q.6 to 8 hours p.r.n. FOLLOWUP: She will need to follow up with her primary care physician in the next 1 to 2 weeks. Continue her appointments for her dialysis as scheduled. TIME SPENT: [address] by [address] for Emanuel Quinones MD cc: DENTON Way MD no further bleeding. constipation resolved. abdomen soft and nontender on exam, and blood counts are actually slightly improved. patient stable for discharge after dialysis to follow up with pcp. recommended to patient that she talk to her PCP and arranging for a colonoscopy for further assessment and because while the patient is unable to tell me exactly when her last colonoscopy was, it sounds like she is likely at/close to being due for a screening colonoscopy anyway. PATRICIA
== END 2019-05-01 18:00 | disposition home or self-care (01) | DRG 377 ==
LOC: ED 09:28 → EDIPHOLD 12:18 → 1N 16:02
PROVIDERS: ATTEND Internal Medicine